=== PATIENT | male | born 1955 | race Native Hawaiian/Other Pacific Islander ===

== ENCOUNTER 2020-01-05 16:40 | Emergency (ER) | payer OTHER ==
[~2020-01-05] VITALS: Ht 180.3 cm; Wt 107.0 kg
[2020-01-05 19:15] VITALS: BP 148/82; TEMP 98.2
== END 2020-01-05 19:15 | disposition home or self-care (01) ==
LOC: ED 16:40
DX: S16.1XXA Strain of muscle, fascia and tendon at neck level, initial encounter (principal); S39.012A Strain of muscle, fascia and tendon of lower back, initial encounter; R51.9 Headache, unspecified; W18.09XA Striking against other object with subsequent fall, initial encounter; Y92.89 Other specified places as the place of occurrence of the external cause
CPT/HCPCS: 96372; 99283; J1885

== ENCOUNTER 2020-03-31 09:27 | Outpatient (CLI) | payer OTHER | END 2020-03-31 21:42 | disposition home or self-care (01) | LOC: US 09:27 | PROVIDERS: ATTEND Internal Medicine | DX: I25.10 Atherosclerotic heart disease of native coronary artery without angina pectoris (principal); R60.0 Localized edema; M79.605 Pain in left leg; M79.604 Pain in right leg; I73.9 Peripheral vascular disease, unspecified; I67.2 Cerebral atherosclerosis; G62.89 Other specified polyneuropathies; Z72.0 Tobacco use; E11.9 Type 2 diabetes mellitus without complications ==

== ENCOUNTER 2021-01-10 09:07 | Outpatient (CLI) | payer OTHER ==
[2021-01-10 09:44] LABS: PLATELET COUNT 241 K/uL (142-355)
[2021-01-10 10:20] LABS: POTASSIUM 3.7 mmol/L (3.6-5.2)
== END 2021-01-10 20:58 | disposition home or self-care (01) ==
LOC: LABW 09:07
PROVIDERS: ATTEND Internal Medicine
DX: E11.22 Type 2 diabetes mellitus with diabetic chronic kidney disease (principal); N18.31 Chronic kidney disease, stage 3a; R53.83 Other fatigue
CPT/HCPCS: 36415; 80053; 81000; 82043; 82306; 82330; 82570; 82607; 82728; 83036; 83540; 83550; 83735; 83970; 84100; 84155; 84402; 84403; 84439; 84443; 85027; 85652; 86038; 86430

== ENCOUNTER 2021-01-12 08:39 | Outpatient (CLI) | payer OTHER | END 2021-01-12 20:13 | disposition home or self-care (01) | LOC: US 08:39 | PROVIDERS: ATTEND Internal Medicine | DX: N18.31 Chronic kidney disease, stage 3a (principal) ==

== ENCOUNTER 2022-06-14 12:14 | Outpatient (CLI) | payer OTHER | END 2022-06-14 19:12 | disposition home or self-care (01) | LOC: RAD 12:14 | PROVIDERS: ATTEND Internal Medicine | DX: Z01.818 Encounter for other preprocedural examination (principal) | CPT/HCPCS: 93005 ==

== ENCOUNTER 2022-09-28 14:35 | Outpatient (CLI) | payer OTHER | END 2022-09-28 20:24 | disposition home or self-care (01) | LOC: CT 14:35 | PROVIDERS: ATTEND Internal Medicine | DX: R60.0 Localized edema (principal); R53.1 Weakness ==